=== PATIENT | male | born 1970 | race Caucasian/White ===

== ENCOUNTER 2018-10-08 05:04 | Emergency (ER) | payer SELFPAY ==
[2018-10-08 06:31] LABS: ABSOLUTE EOSINOPHILS # (AUTO) 0.2 10^3/uL (0.0-0.6); ABSOLUTE LYMPHOCYTES (AUTO) 1.3 10^3/uL (0.5-4.7); BASOPHILS % (AUTO) 0.3 % (0-2); EOSINOPHILS % (AUTO) 1.2 % (0-6); HEMATOCRIT 47.5 % (37.9-51.0); HEMOGLOBIN 16.3 g/dL (13.5-17.0); LYMPHOCYTES % (AUTO) 10.6 % (13-45); MEAN CORPUSCULAR HEMOGLOBIN 33.1 pg (27.0-33.4); MEAN CORPUSCULAR HGB CONC 34.4 g/dL (32.0-36.0); MEAN CORPUSCULAR VOLUME 96 fl (80-97); PLATELET COUNT 163 10^3/uL (150-450); RED BLOOD COUNT 4.94 10^6/uL (4.35-5.55); RED CELL DISTRIBUTION WIDTH 13.6 % (11.5-14.0); SEGMENTED NEUTROPHILS % (AUTO) 79.9 % (42-78); TOTAL CELLS COUNTED % (AUTO) 100 %; WHITE BLOOD COUNT 12.6 10^3/uL (4.0-10.5)
[2018-10-08 06:51] LABS: ALBUMIN 4.1 g/dL (3.5-5.0); ALKALINE PHOSPHATASE 71 U/L (38-126); ANION GAP 8 (5-19); ASPARTATE AMINO TRANSFERASE 35 U/L (17-59); BILIRUBIN,DIRECT 0.3 mg/dL (0.0-0.4); BILIRUBIN,TOTAL 0.9 mg/dL (0.2-1.3); BLOOD UREA NITROGEN 13 mg/dL (7-20); CALCIUM 9.4 mg/dL (8.4-10.2); CARBON DIOXIDE 28 mmol/L (22-30); CHLORIDE 101 mmol/L (98-107); GLUCOSE 98 mg/dL (75-110); POTASSIUM 4.1 mmol/L (3.6-5.0); TOTAL PROTEIN 6.9 g/dL (6.3-8.2)
[2018-10-08] MEDS ORDERED: NORMAL SALINE 1000 ML 1,000 ML IV ONE (06:55)
--- NOTE | 2018-10-08 07:10 | ER Document Report ---
ED General - General Chief Complaint: Lower Abdominal Pain Stated Complaint: LEFT LOWER ABDOMINAL PAIN Time Seen by Provider: 10/08/18 06:53 TRAVEL OUTSIDE OF THE [place] IN LAST 30 DAYS: No - HPI Notes: Presents with left lower quadrant pain that is continuous that started yesterday. No recent fevers cough congestion vomiting or diarrhea. He does have a history of diverticulitis. Pain is localized and does not radiate. No dysuria - Related Data Allergies/Adverse Reactions: No Known Allergies Allergy (Unverified 10/08/18 05:09) Past Medical History - Social History Smoking Status: Current Every Day Smoker Chew tobacco use (# tins/day): No Frequency of alcohol use: Occasional Drug Abuse: None Family History: Reviewed & Not Pertinent Patient has suicidal ideation: No Patient has homicidal ideation: No Review of Systems - Review of Systems Constitutional: No symptoms reported EENT: No symptoms reported Cardiovascular: No symptoms reported Respiratory: No symptoms reported Gastrointestinal: See HPI Genitourinary: No symptoms reported Male Genitourinary: No symptoms reported Musculoskeletal: No symptoms reported Skin: No symptoms reported Hematologic/Lymphatic: No symptoms reported Neurological/Psychological: No symptoms reported Physical Exam - Vital signs Vitals: Temp Pulse Resp BP Pulse Ox 98.5 F 73 17 112/73 97 10/08/18 05:06 10/08/18 05:06 10/08/18 05:06 10/08/18 05:06 10/08/18 05:06 - General General appearance: Appears well, Alert - HEENT Head: Normocephalic, Atraumatic - Respiratory Respiratory status: No respiratory distress Chest status: Nontender Breath sounds: Normal - Cardiovascular Rhythm: Regular Heart sounds: Normal auscultation Murmur: No - Abdominal Inspection: Normal Distension: No distension Bowel sounds: Normal Tenderness: Other - Tenderness palpation of lower quadrant otherwise no other tenderness palpated. No signs of inguinal or umbilical hernias. - Back Back: Normal, Nontender - Extremities General upper extremity: Normal inspection General lower extremity: Normal strength Course - Re-evaluation Re-evalutation: 10/08/18 08:26 And found to have diverticulitis. No signs of abscesses or perforations. Will be discharged on antibiotics with pain and nausea medication. Strict return precautions provided regarding worsening of symptoms or development of fevers to return to emergency department immediately for reevaluation. - Vital Signs Vital signs: Temp Pulse Resp BP Pulse Ox 98.5 F 73 17 112/73 97 10/08/18 05:06 10/08/18 05:06 10/08/18 05:06 10/08/18 05:06 10/08/18 05:06 - Laboratory Result Diagrams: 10/08/18 06:17 10/08/18 06:17 Laboratory results interpreted by me: 10/08/18 10/08/18 06:17 06:17 WBC 12.6 H Lymph % (Auto) 10.6 L Absolute Neuts (auto) 10.0 H Seg Neutrophils % 79.9 H Magnesium 2.6 H Discharge - Discharge Clinical Impression: Diverticulitis Condition: Good Disposition: HOME, SELF-CARE Instructions: Diverticulitis ([facility]) Additional Instructions: You should have a colonoscopy scheduled outpatient due to recurrent diverticulitis. Please seek medical reevaluation if your symptoms are not improving over the next several days or any development of fevers or worsening of abdominal pain Prescriptions: Ciprofloxacin HCl [Cipro 500 mg Tablet] 500 mg PO BID 10 Days #20 tablet Metronidazole [Flagyl 500 mg Tablet] 500 mg PO TID 10 Days #30 tablet Oxycodone HCl/Acetaminophen [Percocet 5-325 mg Tablet] 1 tab PO ASDIR PRN #15 tablet PRN Reason:
--- NOTE | 2018-10-08 08:03 | RADIOLOGY REPORT (SQ) ---
EXAM DESCRIPTION: CT ABDOMEN PELVIS WITH IV CONTRAST COMPLETED DATE/TME: 10/08/2018 06:55 CLINICAL HISTORY: 48 years Male, LLQ pain Comparison: None. Technique: IV contrast. Coronal and sagittal reformat. This exam was performed according to our departmental dose-optimization program, which includes automated exposure control, adjustment of the mA and/or kV according to patient size and/or use of iterative reconstruction technique. [facility]: Dose Right [facility]: CareDose [facility]: Dose Right [facility]: Teradose 4D [facility]: [employer] LIMITATIONS: None Findings: Inflamed diverticular disease of the proximal sigmoid and an extensive segment of the left colon and sigmoid with mural thickening of 2.0 cm. Fat inflammation on the left paracolic space. No drainable fluid collection and no abscess. Small basilar atelectasis or scar. No ascites. No pneumoperitoneum. No evidence of appendicitis. Appendix not definitively discerned. No gross evidence of gallbladder inflammation, hepatobiliary obstruction, or portal vein defect. No bowel obstruction. No hydronephrosis or hydroureter. No renal/ureteral stone. No evidence of abdominal aortic aneurysm. No significant thecal sac/cord or nerve root compression. Inferior thorax, liver, gallbladder, pancreas, spleen, adrenals, renal system, gastrointestinal tract, pelvic organs, lymphatics, vasculature, and musculoskeleton appear otherwise unremarkable. IMPRESSION: Moderate left colonic/sigmoid diverticulitis. Cannot exclude underlying neoplastic processes. Recommend CT surveillance including at 7-12 weeks following initiation of any clinically warranted therapy.
[2018-10-08] MEDS ORDERED: CIPROFLOXACIN HCL 500 MG TABLET PO ONE (08:32)
[2018-10-08] MEDS ORDERED: METRONIDAZOLE 500 MG TABLET PO ONE (08:32)
[2018-10-08] MEDS ORDERED: OXYCODONE-ACETAMINOPHEN 5-325 MG TABLET PO ONE (08:34)
[2018-10-08 08:43] VITALS: BP 120/69
== END 2018-10-08 08:43 | disposition home or self-care (01) ==
LOC: ER 05:04
DX: K57.92 Diverticulitis of intestine, part unspecified, without perforation or abscess without bleeding (principal); R10.30 Lower abdominal pain, unspecified; F17.200 Nicotine dependence, unspecified, uncomplicated
CPT/HCPCS: 99284; 96360; 36415; 83690; 83735; 85025; 80053; 74177; J7030

== ENCOUNTER 2019-03-05 11:35 | Emergency (ER) | payer SELFPAY ==
[2019-03-05 12:32] LABS: ABSOLUTE EOSINOPHILS # (AUTO) 0.1 10^3/uL (0.0-0.6); ABSOLUTE LYMPHOCYTES (AUTO) 1.3 10^3/uL (0.5-4.7); ABSOLUTE MONOCYTES (AUTO) 0.7 10^3/uL (0.1-1.4); BASOPHILS % (AUTO) 0.2 % (0-2); EOSINOPHILS % (AUTO) 0.8 % (0-6); HEMATOCRIT 49.8 % (37.9-51.0); HEMOGLOBIN 16.8 g/dL (13.5-17.0); LYMPHOCYTES % (AUTO) 8.7 % (13-45); MEAN CORPUSCULAR HEMOGLOBIN 32.6 pg (27.0-33.4); MEAN CORPUSCULAR HGB CONC 33.7 g/dL (32.0-36.0); MEAN CORPUSCULAR VOLUME 97 fl (80-97); MONOCYTES % (AUTO) 4.3 % (3-13); PLATELET COUNT 223 10^3/uL (150-450); RED BLOOD COUNT 5.15 10^6/uL (4.35-5.55); RED CELL DISTRIBUTION WIDTH 13.6 % (11.5-14.0); TOTAL CELLS COUNTED % (AUTO) 100 %; WHITE BLOOD COUNT 15.1 10^3/uL (4.0-10.5)
[2019-03-05 12:43] LABS: APPEARANCE,URINE CLEAR; BILIRUBIN,URINE NEGATIVE (NEGATIVE); COLOR,URINE STRAW; GLUCOSE, URINE NEGATIVE (NEGATIVE); KETONES,URINE NEGATIVE (NEGATIVE); LEUKOCYTE ESTERASE,URINE NEGATIVE (NEGATIVE); NITRITE,URINE NEGATIVE (NEGATIVE); PROTEIN,URINE NEGATIVE (NEGATIVE); URINE SPECIFIC GRAVITY 1.004; UROBILINOGEN,URINE NEGATIVE mg/dL (<2.0)
[2019-03-05 12:53] LABS: ALBUMIN 4.1 g/dL (3.5-5.0); ALCOHOL 81 mg/dL (NONE DETECTED); ALKALINE PHOSPHATASE 72 U/L (38-126); ANION GAP 15 (5-19); ASPARTATE AMINO TRANSFERASE 40 U/L (17-59); BILIRUBIN,DIRECT 0.2 mg/dL (0.0-0.4); BILIRUBIN,TOTAL 0.2 mg/dL (0.2-1.3); BLOOD UREA NITROGEN 9 mg/dL (7-20); CALCIUM 8.9 mg/dL (8.4-10.2); CARBON DIOXIDE 21 mmol/L (22-30); CHLORIDE 104 mmol/L (98-107); GLUCOSE 91 mg/dL (75-110); POTASSIUM 3.7 mmol/L (3.6-5.0); TOTAL PROTEIN 7.1 g/dL (6.3-8.2)
[2019-03-05 12:58] LABS: ACETAMINOPHEN < 10 ug/mL (10-30); SALICYLATE < 1.0 mg/dL (2.0-20.0)
[2019-03-05 13:01] LABS: URINE AMPHETAMINES SCREEN NEGATIVE; URINE BARBITURATES SCREEN NEGATIVE; URINE BENZODIAZEPINES SCREEN NEGATIVE; URINE MARIJUANA (THC) SCREEN NEGATIVE; URINE METHADONE SCREEN NEGATIVE; URINE PHENCYCLIDINE SCREEN NEGATIVE
[2019-03-05 13:09] LABS: URINE COCAINE SCREEN UNCONFIRMED POSITIVE
--- NOTE | 2019-03-05 15:10 | EKG REPORT ---
SEVERITY:- BORDERLINE ECG - SINUS RHYTHM LEFT AXIS DEVIATION IVCD : Confirmed by: Bakari Bedoya MD 05-Mar-2019 15:08:47
--- NOTE | 2019-03-05 15:26 | ER Document Report ---
ED General - General Chief Complaint: Possible Overdose Stated Complaint: POSSIBLE OVERDOSE Time Seen by Provider: 03/05/19 14:44 Mode of Arrival: Medic Information source: Parent, Relative, Friend Notes: 48-year-old male presents the emergency department brought in by EMS for overdose. Patient reports he drinks a pint of liquor every couple days and drinks 6-12 beers daily. Also reports he does cocaine and smokes marijuana. Patient reports he was drinking with friends last night. He woke up early this morning with a toothache. He took a pill that was in his truck. He thought it was ibuprofen but is now worried that it was heroin or Percocet. His friend came upon the patient outside sitting on a bucket with his eyes open but he was not breathing. EMS was called and the friend started CPR. RICHELLE gave patient 4 mg of Narcan intranasal and EMS gave him 2 mg of Narcan IV. Patient was reported by EMS and RICHELLE to have periods of apnea with his O2 sats dropping to 46%. Patient reports that he wants to quit drinking but does not want to go to [facility]. Does not want go anywhere in [facility]. Patient reports he does not have suicidal or homicidal ideations. Patient has 2 sisters at his bedside. One sister reports patient will be going home with her and staying with her. Patient reports he has a headache. Denies nausea vomiting requesting food to eat. Patient is answering all questions appropriately. TRAVEL OUTSIDE OF THE [place] IN LAST 30 DAYS: No - HPI Onset: Just prior to arrival Onset/Duration: Sudden Associated symptoms: None Exacerbated by: Denies Relieved by: Denies Similar symptoms previously: No Recently seen / treated by doctor: No - Related Data Allergies/Adverse Reactions: No Known Allergies Allergy (Unverified 10/08/18 05:09) Past Medical History - General Information source: Patient - Social History Smoking Status: Current Every Day Smoker Cigarette use (# per day): Yes Chew tobacco use (# tins/day): Yes - Some day Frequency of alcohol use: Heavy Drug Abuse: Cocaine, Marijuana Lives with: Friend Family History: Reviewed & Not Pertinent Patient has suicidal ideation: No Patient has homicidal ideation: No GI Medical History: Reports: Hx Diverticulitis Surgical Hx: Negative Review of Systems - Review of Systems Notes: Review HPI for review of systems., All other systems negative Physical Exam - Vital signs Vitals: Resp Pulse Ox 13 98 03/05/19 11:44 03/05/19 11:44 - General General appearance: Alert In distress: None - HEENT Head: Normocephalic, Atraumatic Eyes: Normal Conjunctiva: Normal Extraocular movements intact: Yes Eyelashes: Normal Ears: Normal External canal: Normal Tympanic membrane: Normal Mouth/Lips: Normal Mucous membranes: Normal, Moist Pharynx: Normal. No: Erythema, Exudate, Tonsillar hypertrophy Neck: Normal, Supple. No: Lymphadenopathy - Respiratory Respiratory status: No respiratory distress Chest status: Nontender Breath sounds: Normal Chest palpation: Normal - Cardiovascular Rhythm: Regular Heart sounds: Normal auscultation Murmur: No - Abdominal Inspection: Normal Distension: No distension Bowel sounds: Normal Tenderness: Tender - LLQ patient reports he is always tender in the left lower quad due to his diverticulitis - Back Back: Normal - Extremities General upper extremity: Normal ROM General lower extremity: Normal ROM - Neurological Neuro grossly intact: Yes Cognition: Normal Orientation: AAOx4 [place] Coma Scale Eye Opening: Spontaneous [place] Coma Scale Verbal: Oriented [place] Coma Scale Motor: Obeys Commands [place] Coma Scale Total: 15 Speech: Normal Motor strength normal: LUE, RUE, LLE, RLE - Psychological Associated symptoms: Normal affect, Normal mood - Skin Skin Temperature: Warm Skin Moisture: Dry Skin Color: Normal Course - Re-evaluation Re-evalutation: 03/05/19 15:27 Patient presents after he was found unresponsive. Friend did CPR at the scene. He received IV Narcan and intranasal Narcan. Drug screen is positive for opiates and cocaine. EtOH 81. Patient is alert and oriented denies suicidal or homicidal ideations. Reports he is hungry. Reports he did want to quit drinking. He does not sound like he really wants to quit drinking though. Patient offered [facility] he declines reports he does not want to go anywhere in [facility]. 03/05/19 15:54 Labs unremarkable. Chest x-ray negative. EKG sinus rhythm. Patient denies suicidal homicidal ideations. denies cp. Reports he was not trying to kill himself he believes somebody slipped him something. He was instructed on opiate confirmation being sent out. Patient has TWO sisters sitting at his bedside. One sister is a rehab nurse. She reports patient will be going home with her. Patient and family instructed on options for rehab. We discussed alcohol withdrawal. Patient sister is very familiar with signs and symptoms. Patient does not really seem interested in quitting drinking or drugs. Emotional support given to family and patient. Patient discharged to the safety of his family Chest X-Ray 03/05/19 15:08 IMPRESSION: NO ACUTE RADIOGRAPHIC FINDING IN THE CHEST. Laboratory 03/05/19 03/05/19 03/05/19 11:55 11:55 11:55 WBC 15.1 H RBC 5.15 Hgb 16.8 Hct 49.8 MCV 97 MCH 32.6 MCHC 33.7 RDW 13.6 Plt Count 223 Lymph % (Auto) 8.7 L Dickinson % (Auto) 4.3 Eos % (Auto) 0.8 Baso % (Auto) 0.2 Absolute Neuts (auto) 13.0 H Absolute Lymphs (auto) 1.3 Absolute Monos (auto) 0.7 Absolute Eos (auto) 0.1 Absolute Basos (auto) 0.0 Seg Neutrophils % 86.0 H Sodium 139.9 Potassium 3.7 Chloride 104 Carbon Dioxide 21 L Anion Gap 15 BUN 9 Creatinine 0.63 Est GFR ( Amer) > 60 Est GFR (MDRD) Non-Af > 60 Glucose 91 Calcium 8.9 Total Bilirubin 0.2 Direct Bilirubin 0.2 Neonat Total Bilirubin Not Reportable Neonat Direct Bilirubin Not Reportable Neonat Indirect Bili Not Reportable AST 40 ALT 26 Alkaline Phosphatase 72 Total Protein 7.1 Albumin 4.1 Urine Color STRAW Urine Appearance CLEAR Urine pH 5.0 Ur Specific [place] 1.004 Urine Protein NEGATIVE Urine Glucose (UA) NEGATIVE Urine Ketones NEGATIVE Urine Blood SMALL H Urine Nitrite NEGATIVE Urine Bilirubin NEGATIVE Urine Urobilinogen NEGATIVE Ur Leukocyte Esterase NEGATIVE Urine RBC (Auto) 0 U Hyaline Cast (Auto) 4 Squamous Epi Cells Auto <1 Urine Mucus (Auto) RARE Urine Ascorbic Acid NEGATIVE Salicylates < 1.0 L Urine Opiates Screen Urine Methadone Screen Acetaminophen < 10 L Ur Barbiturates Screen Ur Phencyclidine Scrn Ur Amphetamines Screen U Benzodiazepines Scrn Urine Cocaine Screen U Marijuana (THC) Screen Serum Alcohol 81 03/05/19 11:55 WBC RBC Hgb Hct MCV MCH MCHC RDW Plt Count Lymph % (Auto) Dickinson % (Auto) Eos % (Auto) Baso % (Auto) Absolute Neuts (auto) Absolute Lymphs (auto) Absolute Monos (auto) Absolute Eos (auto) Absolute Basos (auto) Seg Neutrophils % Sodium Potassium Chloride Carbon Dioxide Anion Gap BUN Creatinine Est GFR ( Amer) Est GFR (MDRD) Non-Af Glucose Calcium Total Bilirubin Direct Bilirubin Neonat Total Bilirubin Neonat Direct Bilirubin Neonat Indirect Bili AST ALT Alkaline Phosphatase Total Protein Albumin Urine Color Urine Appearance Urine pH Ur Specific [place] Urine Protein Urine Glucose (UA) Urine Ketones Urine Blood Urine Nitrite Urine Bilirubin Urine Urobilinogen Ur Leukocyte Esterase Urine RBC (Auto) U Hyaline Cast (Auto) Squamous Epi Cells Auto Urine Mucus (Auto) Urine Ascorbic Acid Salicylates Urine Opiates Screen UNCONFIRMED POSITIVE Urine Methadone Screen NEGATIVE Acetaminophen Ur Barbiturates Screen NEGATIVE Ur Phencyclidine Scrn NEGATIVE Ur Amphetamines Screen NEGATIVE U Benzodiazepines Scrn NEGATIVE Urine Cocaine Screen UNCONFIRMED POSITIVE U Marijuana (THC) Screen NEGATIVE Serum Alcohol 03/05/19 19:16 - Vital Signs Vital signs: Temp Pulse Resp BP Pulse Ox 98 F 14 125/76 97 03/05/19 15:09 03/05/19 16:01 03/05/19 16:01 03/05/19 16:01 - Laboratory Result Diagrams: 03/05/19 11:55 03/05/19 11:55 Laboratory results interpreted by me: 03/05/19 03/05/19 03/05/19 11:55 11:55 11:55 WBC 15.1 H Lymph % (Auto) 8.7 L Absolute Neuts (auto) 13.0 H Seg Neutrophils % 86.0 H Carbon Dioxide 21 L Urine Blood SMALL H Salicylates < 1.0 L Acetaminophen < 10 L - Diagnostic Test Radiology reviewed: Image reviewed, Reports reviewed - EKG Interpretation by Mi EKG shows normal: Sinus rhythm Rate: Normal Rhythm: NSR Additional EKG results interpreted by nj: 03/05/19 19:[address] elevation no t wave inversion Discharge - Discharge Clinical Impression: Overdose Qualifiers: Encounter type: initial encounter Injury intent: accidental or unintentional Qualified Code(s): T50.901A - Poisoning by unspecified drugs, medicaments and biological substances, accidental (unintentional), initial encounter Condition: Stable Disposition: HOME, SELF-CARE Instructions: Chronic Alcoholism ([facility]), Cocaine Abuse ([facility]), Instructions for Home Care Following a Drug Overdose ([facility]), Overdose ([facility]) Additional Instructions: *You have been evaluated for post accidental overdose with history of substance abuse and chronic alcoholism *Your chest x-ray was negative. Your urine drug test was positive for opiates and cocaine. A confirmation of what type of opiates is pending. You may contact the [facility] nurse at [phone] for this information. *Avoid alcohol, cocaine or marijuana *You are encouraged to follow-up with a counselor and rehab *Follow up with a primary care provider within 5 days for recheck *Return to ED for worsening condition, changes, needs, difficulty breathing concerns Forms: Smoking Cessation Education
--- NOTE | 2019-03-05 15:36 | RADIOLOGY REPORT (SQ) ---
EXAM DESCRIPTION: CHEST 2 VIEWS COMPLETED DATE/TIME: 03/05/2019 3:21 pm REASON FOR STUDY: cpr, chest wall pain COMPARISON: None. EXAM PARAMETERS: NUMBER OF VIEWS: two views TECHNIQUE: Digital Frontal and Lateral radiographic views of the chest acquired. RADIATION DOSE: NA LIMITATIONS: none FINDINGS: LUNGS AND PLEURA: No opacities, masses or pneumothorax. No pleural effusion. MEDIASTINUM AND HILAR STRUCTURES: No masses or contour abnormalities. HEART AND VASCULAR STRUCTURES: Heart normal size. No evidence for failure. BONES: Callus along old healed anterior left 2nd 3rd 4th and 5th rib fractures. HARDWARE: None in the chest. OTHER: No other significant finding. IMPRESSION: NO ACUTE RADIOGRAPHIC FINDING IN THE CHEST. TECHNICAL DOCUMENTATION: JOB ID: [id number] [employer]- All Rights Reserved Reading location - IP/workstation name: [email or web address]
[2019-03-05 16:09] VITALS: BP 125/76
== END 2019-03-05 16:15 | disposition home or self-care (01) ==
LOC: ER 11:35
DX: T50.901A Poisoning by unspecified drugs, medicaments and biological substances, accidental (unintentional), initial encounter (principal); R51 Headache; R10.814 Left lower quadrant abdominal tenderness; F17.210 Nicotine dependence, cigarettes, uncomplicated
CPT/HCPCS: 36415; 71046; 80053; 80307; 80361; 81001; 85025; 93005; 93010; 99285